=== PATIENT | female | born 1940 | race Caucasian/White ===

== ENCOUNTER 2016-08-02 07:14 | Emergency (ER) | payer MEDICARE, BC ==
[~2016-08-02] VITALS: Ht 160 cm; Wt 67.1 kg
[2016-08-02] MEDS ORDERED: DIPHENHYDRAMINE 50 MG/ML VIAL. IVP ONE (09:00)
[2016-08-02] MEDS ORDERED: methylPREDNISolone SOD SUCC PF 125 MG/2 ML VIAL. IV ONE (09:00)
[2016-08-02] MEDS ORDERED: FAMOTIDINE 20 MG/2 ML VIAL IVP ONE (09:00)
--- NOTE | 2016-08-02 09:32 | PHYS DOC ---
Past Medical History Past Medical History: Hypertension Drug Use: None Adult General Chief Complaint Chief Complaint: OTHER COMPLAINTS HPI HPI Patient is a 75 year old female who presents with upper and lower lip swelling for 2 days. She also has a rash on her neck and lower legs. She denies any shortness of breath or swelling of the tongue or throat. She has been taking Benadryl at home without relief. She last took Benadryl last night. Patient has a history of frequent allergic reactions. She states that prednisone usually helps. She denies any new foods or medications. She has not changed any household products. She does not take any Justo inhibitors. She has numerous food allergies, however states that she is very careful about what she eats. Her PCP is Dr. Hernandez. Review of Systems Review of Systems Constitutional: Denies fever or chills. [] Eyes: Denies change in visual acuity, redness, or eye pain. [] HENT: Denies ear pain, nasal congestion or sore throat. Denies throat or tongue swelling. Reports lip swelling. Respiratory: Denies cough or shortness of breath. [] Musculoskeletal: Denies back pain or joint pain. [] Integument: Denies skin lesions. Reports pruritic rash on the neck and lower legs. Neurologic: Denies headache, focal weakness or sensory changes. [] All systems reviewed and negative unless otherwise stated in the HPI. Current Medications Current Medications Current Medications Medications (Trade) Dose Ordered Sig/Jessica Start Time Stop Time Status Last Admin Dose Admin Diphenhydramine HCl (Benadryl) 25 mg 1X ONCE 08/02/16 09:00 08/02/16 09:01 DC 08/02/16 09:28 25 MG Famotidine (Pepcid) 20 mg 1X ONCE 08/02/16 09:00 08/02/16 09:01 DC 08/02/16 09:24 20 MG Methylprednisolone Sodium Succinate (Solu-Medrol 125mg Vial) 125 mg 1X ONCE 08/02/16 09:00 08/02/16 09:01 DC 08/02/16 09:30 125 MG Allergies Allergies Allergies Coded Allergies Type Severity Reaction Last Updated Verified Ahowegl-Wjv-Jdk Reductase Inhibitor Allergy Intermediate increase liver enzymes, muscle pain 08/02/16 Yes Physical Exam Physical Exam Constitutional: Well developed, well nourished, no acute distress, non-toxic appearance. [] HENT: Normocephalic, atraumatic, bilateral external ears normal, oropharynx moist, no oral exudates, nose normal. There is no swelling of the tongue or the posterior pharynx. There is mild swelling of the upper and lower lips bilaterally. Eyes: PERRLA, EOMI, conjunctiva normal, no discharge. [] Neck: Normal range of motion, no tenderness, supple, no stridor. [] Cardiovascular: Heart rate regular rhythm, no murmur [] Lungs & Thorax: Bilateral breath sounds clear to auscultation without wheezes, rales, or rhonchi. No respiratory distress. Skin: Warm, dry, no erythema. There is a patchy macular erythematous rash along the anterior neck and on bilateral lower extremities. Back: No tenderness, no CVA tenderness. [] Extremities: No tenderness, no cyanosis, no clubbing, ROM intact, no edema. [] Neurologic: Alert and oriented X 3, normal motor function, normal sensory function, no focal deficits noted. [] Psychologic: Affect normal, judgement normal, mood normal. [] Current Patient Data Vital Signs Vital Signs Date Time Temp Pulse Resp B/P Pulse Ox O2 Delivery O2 Flow Rate FiO2 08/02/16 08:00 98.3 76 19 97 Room Air 98.3 EKG EKG [] Radiology/Procedures Radiology/Procedures [] Course & Med Decision Making Course & Med Decision Making Pertinent Labs and Imaging studies reviewed. (See chart for details) Patient presents with lip swelling for 2 days due to unknown allergens. She has a history of similar. She is given a digital, Pepcid, and Solu-Medrol in the emergency department. She reported improvement in her symptoms with objective improvement in her neck rash. She is discharged home with prescription for prednisone. She is encouraged to follow-up with an formulation scientist. Return precautions were discussed. She verbalizes understanding and agrees with plan. Dragon Disclaimer Dragon Disclaimer This electronic medical record was generated, in whole or in part, using a voice recognition dictation system. Departure Departure Impression: Primary Impression: [id number] Disposition: HOME, SELF-CARE Condition: IMPROVED Referrals: KALYAN HERNANDEZ MD (PCP) Patient Instructions: Angioedema, Vkrj-lg-Ydra Additional Instructions: You were seen for swelling of the lips, called angioedema. This is usually the result of an allergic reaction. Please complete all of the prescribed steroids. You may take Benadryl and Pepcid at home to help with your symptoms as well. Use according to package instructions. Please follow-up with your primary care doctor or an formulation scientist. Return to the emergency department if you have increased swelling of your lips, swelling of the tongue or throat, difficulty breathing, or other new or concerning symptoms. Scripts Prednisone 20 Mg [id number] Mg PO DAILY 5 Days Prov:TOMER BOYLE 08/02/16 Problem Qualifiers Primary Impression: [id number] Encounter type: initial encounter Qualified Code: T78.3XXA - Angioneurotic edema, initial encounter TOMER BOYLE Aug 02, 2016 09:32
[2016-08-02] MEDS ORDERED: PRED20TA PO (10:28)
[2016-08-02 10:30] VITALS: BP 160/72
== END 2016-08-02 10:56 | disposition home or self-care (01) ==
LOC: ER 07:14
DX: T78.3XXA Angioneurotic edema, initial encounter (principal); I10 Essential (primary) hypertension; Z88.8 Allergy status to other drugs, medicaments and biological substances; Y84.8 Other medical procedures as the cause of abnormal reaction of the patient, or of later complication, without mention of misadventure at the time of the procedure; Y92.89 Other specified places as the place of occurrence of the external cause
CPT/HCPCS: 96374; 96375; 99284; J1200; J2930; S0028

== ENCOUNTER → 2017-01-10 | Outpatient (CLI) | payer MEDICARE, BC ==
[~2017-01-10] MED LIST: PRED20TA PO
== END | disposition home or self-care (01) ==
LOC: EKG 15:21
PROVIDERS: ATTEND Internal Medicine Cardiovascular Disease
DX: R00.2 Palpitations (principal)
CPT/HCPCS: 93225

== ENCOUNTER → 2017-01-17 | Outpatient (CLI) | payer MEDICARE, BC ==
[~2017-01-17] MED LIST changes: +ASPI-482 PO; +COLE1TAB2 PO; +LOSA1TAB18 PO; +MAGN400C PO; +POTASSIUM CHLO10 MEQ PO; +REGADENOSON 0.4 MG/5 ML DISP.SYRIN. IV ONE
--- NOTE | 2017-01-17 14:18 | RAD ---
APPROVED REPORT Test Type: Pharmacological Stress Nurse/Tech: zoë richards Test Indications: tachycardia, arrythmia Cardiac History: tachycardia, arrythmia, HTN, see EHR Medications: none stated Medical History: remote smoker, see EHR Resting ECG: SR Resting Heart Rate: 79 bpm Resting Blood Pressure: 138/53mmHg Pretest Chest Pain: No chest pain Nurse/Tech Notes LUNG SOUNDS CLEAR, S1S2 WNL. Consent: The procedure was explained to the patient in lay terms. Informed consent was witnessed. Juan Antonio eout was entered into [employer]. History and Stress Test performed by RT Goran (Harry) (N) Pharm. Details Pharmacologic stress testing was performed using 0.4mg per 5ml of regadenoson given intravenously ove r 7-10 seconds. Stress Symptoms NONE STATED. POST EXERCISE Reason for Termination: Infusion complete Max HR: 94 bpm Max Blood Pressure: 138/53mmHg Chest Pain: No. Arrhythmia: No. ST Change: No. INTERPRETATION Stress EKG Conclusion: The resting EKG shows a sinus rhythm, nonspecific ST segment changes and a pos sible previous anterior septal infarct. The stress EKG shows no significant changes from baseline. No EKG evidence of stress-induced ischemia. Imaging Protocol IMAGE PROTOCOL: Rest Tc-99m/stress Tc-99m 1 day Rest: Stress: Viability: Radiopharm.Tc99m [id number] Sestamibi Dose11.1mCi 32mCi Img Date 01/17/2017 01/17/2017 Inj-Img [id number]. 60min. Rest Admin Site:IV - Left WristAdministrator:ASHWINI Hill Stress Admin Site: IV - Left WristAdministrator: RT Goran (R)(N) STRESS DATA End Diast. Vol.47.0mlAv. Heart Rate77.0bpm End Syst. Vol.6.0mlCO Index BSA0.0L/min Myocardial Mass90.0gEject. Ncifgkoj52.0% Stress Rates Pk. Fill Rate4.93EDV/secLVtime Pk. Fill 217.35msec Pk. Empty Rate5.71ESV/secLVtime Pk. Tduoh190.84msec 1/3 Pk. Fill1.59EDV/sec Stress Scores Regional WT1.00Summed WT7.00 Regional WM0.00Summed WM0.00 LV Perfusion The stress scans showed no significant defects. The rest scans showed no significant defects. Nuclear imaging shows no reversible ischemia or infarct. Wall Motion Left ventricular systolic function is normal with ejection fraction of greater than 70%. LV Perf. Quant 17 Seg. SSS0.00 17 Seg. SRS0.00 17 Seg. SDS0.00 Stress Defect Extent (% LAD)0.00Rest Defect Extent (% LAD)0.00Rev. Defect Extent (% LAD)0.00 Stress Defect Extent (% LCX) 0.00Rest Defect Extent (% LCX)0.00Rev. Defect Extent (% LCX)0.00 Stress Defect Extent (% RCA)0.00Rest Defect Extent (% RCA)0.00Rev. Defect Extent (% RCA)0.00 Stress Defect Extent (% DIVYA)0.00Rest Defect Extent (% DIVYA)0.00Rev. Defect Extent (% DIVYA)0.00 Conclusion 1. Baseline abnormal EKG but no EKG evidence of stress-induced ischemia. 2. Nuclear imaging shows no reversible ischemia or infarct. 3. Normal left ventricular systolic function with an ejection fraction of greater than 70%. 4. Low risk Lexiscan nuclear stress test.
--- NOTE | 2017-01-18 18:24 | RAD ---
APPROVED REPORT Patient Location: OUT-PATIENT Laterality:Bilateral Indications STENOSIS/PREVIOUS RT ENDARTERECTOMY Doppler Spectral Velocity Analysis Right Left pCCA 126/25 cm/spCCA 109/26 cm/s mCCA 117/23 cm/smCCA 129/33 cm/s dCCA 108/31 cm/sdCCA 105/32 cm/s Bulb 83/13 cm/sBulb 100/28 cm/s ECA 113/ cm/sECA 168/ cm/s pICA 148/38 cm/spICA 95/31 cm/s Al 136/35 cm/smICA 136/42 cm/s dICA 144/36 cm/sdICA 111/36 cm/s Vert. 54/ cm/sVert. 43/ cm/s Subcl. 107/ cm/sSubcl. 254/ cm/s ICA/CCA 1.17ICA/CCA 1.25 Findings Chamberlain scale images of the bilateral common carotid, internal carotid and external carotid arteries rev eals intimal hyperplasia of mild degree. On the right there is suggestion of approximately 50-69% stenosis involving the proximal and mid inte rnal carotid artery. The vertebral velocities are antegrade. ICA to CCA ratios are grossly normal on the right side suggestive of possible high flow state accounting for the elevated velocities in the I CA as there is no clear evidence of plaque or stenosis by chamberlain scale images. The left common carotid, internal carotid and vertebral velocities are grossly within normal limits. Slight elevation of the mid internal carotid artery velocities as noted suggestive again of approxima tely 50-69% stenosis by ultrasound criteria but no clear evidence of at the chronic plaque is noted. ICA to CCA ratios are again within normal limits on the left side. There are elevated left external c arotid artery velocities of 168 cm/s suggestive greater than 50% stenosis. There is also elevated luz maria ocities noted in the left subclavian at 253 cm per second suggestive again of greater than 50% stenos is Critical Notification Critical Value: No <Conclusion> Moderate bilateral internal carotid artery stenosis of approximately 50-69% by ultrasound criteria Incidental finding of left subclavian stenosis with elevated velocities.
== END | disposition home or self-care (01) ==
LOC: NM 08:18
PROVIDERS: ATTEND Internal Medicine Cardiovascular Disease
DX: I65.23 Occlusion and stenosis of bilateral carotid arteries (principal); I10 Essential (primary) hypertension; Z79.01 Long term (current) use of anticoagulants
CPT/HCPCS: 78452; 93017; 93880; 96374; 96375; 96376; A9500; J2785

== ENCOUNTER 2017-07-12 08:15 | Emergency (ER) | payer MEDICARE, BC | END 2017-07-12 09:03 | disposition home or self-care (01) | LOC: ER 08:15 | DX: T78.40XA Allergy, unspecified, initial encounter (principal); I10 Essential (primary) hypertension; Z88.8 Allergy status to other drugs, medicaments and biological substances; X58.XXXA Exposure to other specified factors, initial encounter | CPT/HCPCS: 99283 ==

== ENCOUNTER → 2018-02-06 | Outpatient (CLI) | payer MEDICARE, BC ==
[2017-07-12 09:00] VITALS: BP 143/71
[~2018-02-06] MED LIST changes: +DIPH25CA58 PO; -LOSA1TAB18 PO; +LOSA1TAB25 PO; +POTA10TA12 PO; -POTASSIUM CHLO10 MEQ PO; +PRED50TA PO; -REGADENOSON 0.4 MG/5 ML DISP.SYRIN. IV ONE
--- NOTE | 2018-02-06 10:34 | RAD ---
MR#: [id number] Date of Study: 02/06/2018 Ordering Physician: LETY ADKINS, Referring Physician: LETY ADKINS Tech: Vi Cruz RDMS RVT APPROVED REPORT Patient Location: OUT-PATIENT Laterality:Bilateral Indications CAROTID STENOSIS Surgery/Intervention Endarterectomy: right Doppler Spectral Velocity Analysis Right Left mCCA 112/20 cm/smCCA 98/21 cm/s ECA 117/ cm/sECA 101/ cm/s pICA 103/26 cm/spICA 76/20 cm/s Al 104/25 cm/smICA 101/27 cm/s dICA 103/26 cm/sdICA 85/24 cm/s ICA/CCA 0.93ICA/CCA 0.00 Findings Grayscale images of the bilateral common carotid, external and internal carotid vessels reveal mild d iffuse atherosclerotic plaque. Spectral waveforms and color Doppler are suggestive overall 0 to less than 50% stenosis. Bilateral vertebral velocities are antegrade and fashion. Bilateral ICA to CCA ratios are within normal limits. Critical Notification Critical Value: No <Conclusion> No significant carotid arterial disease bilaterally. Signed by : Daniel Croft, Electronically Approved : 02/06/2018 10:34:05
== END | disposition home or self-care (01) ==
LOC: US 07:16
PROVIDERS: ATTEND Internal Medicine Cardiovascular Disease
DX: I65.23 Occlusion and stenosis of bilateral carotid arteries (principal)
CPT/HCPCS: 93880

== ENCOUNTER 2018-05-08 08:07 | Emergency (ER) | payer MEDICARE, BC ==
[~2018-05-08] VITALS: Ht 160 cm; Wt 68.0 kg
[2018-05-08 08:15] VITALS: BP 164/69
--- NOTE | 2018-05-08 08:33 | PHYS DOC ---
Past Medical History Past Medical History: Hypertension Additional Past Medical Histor: PROLAPSED BLADDER Past Surgical History: Tubal ligation Additional Past Surgical Histo: CAROTID ENDARTERECTOMY Alcohol Use: None Drug Use: None Adult General Chief Complaint Chief Complaint: COUGH HPI HPI Patient is a 77 year old female who presents with a history of hypertension and seasonal allergies who presents today complaining of a productive cough and nasal congestion for 6 days. Patient denies any fever. Review of Systems Review of Systems Constitutional: Denies fever or chills [] Eyes: Denies change in visual acuity, redness, or eye pain [] HENT: Denies nasal congestion or sore throat [] Respiratory: Reports cough, denies shortness of breath [] Cardiovascular: No additional information not addressed in HPI [] GI: Denies abdominal pain, nausea, vomiting, bloody stools or diarrhea [] : Denies dysuria or hematuria [] Musculoskeletal: Denies back pain or joint pain [] Integument: Denies rash or skin lesions [] Neurologic: Denies headache, focal weakness or sensory changes [] All other systems were reviewed and found to be within normal limits, except as documented in this note. Allergies Allergies Allergies Coded Allergies Type Severity Reaction Last Updated Verified Axagvht-Zfl-Uon Reductase Inhibitor Allergy Intermediate increase liver enzymes, muscle pain 05/08/18 Yes Physical Exam Physical Exam Constitutional: Well developed, well nourished, no acute distress, non-toxic appearance. [] HENT: Normocephalic, atraumatic, bilateral external ears normal, oropharynx moist, no oral exudates, nose normal. [] Eyes: PERRLA, EOMI, conjunctiva normal, no discharge. [] Neck: Normal range of motion, no tenderness, supple, no stridor. [] Cardiovascular:Heart rate regular rhythm, no murmur [] Lungs & Thorax: Bilateral breath sounds clear to auscultation [] Abdomen: Bowel sounds normal, soft, no tenderness, no masses, no pulsatile masses. [] Skin: Warm, dry, no erythema, no rash. [] Back: No tenderness, no CVA tenderness. [] Extremities: No tenderness, no cyanosis, no clubbing, ROM intact, no edema. [] Neurologic: Alert and oriented X 3, normal motor function, normal sensory function, no focal deficits noted. [] Psychologic: Affect normal, judgement normal, mood normal. [] Current Patient Data Vital Signs Vital Signs Date Time Temp Pulse Resp B/P (MAP) Pulse Ox O2 Delivery O2 Flow Rate FiO2 05/08/18 08:15 98.6 79 20 164/69 (100) 97 Room Air 98.6 EKG EKG [] Radiology/Procedures Radiology/Procedures []PROCEDURE: CHEST PA & LATERAL AP and Lateral Views of the Chest 05/08/2018 8:17 AM Indication: PATIENT HAS HAD A PRODUCTIVE X1 WEEK. Comparison: None Findings: There is no focal consolidation or infiltrate identified. The cardiomediastinal silhouette is within normal limits. There is no evidence of pneumothorax or pleural effusion. No acute osseous abnormalities are identified. Impression: No evidence of acute cardiopulmonary process. Electronically signed by: Geovany Summers MD (05/08/2018 9:03 AM) [facility] DICTATED and SIGNED BY: GEOVANY SUMMERS MD DATE: 05/08/18 0903 Course & Med Decision Making Course & Med Decision Making Pertinent Labs and Imaging studies reviewed. (See chart for details) This is a 77-year-old female patient with history of allergies, presenting to the ED today complaining of a productive cough for 6 days. Chest x-ray interpreted by radiologist is negative for any acute findings. Patient could likely have bronchitis. Patient herself is very concerned and is asking for antibiotics. She does not meet criteria we discussed benefits and risk of taking antibiotics. Rx for z-pack, prednisone, and albuterol inhaler given, encouraged to continue taking Zyrtec at home. Dragon Disclaimer Dragon Disclaimer This electronic medical record was generated, in whole or in part, using a voice recognition dictation system. Departure Departure Impression: Primary Impression: Seasonal allergies Additional Impression: Acute bronchitis Disposition: HOME, SELF-CARE Condition: STABLE Referrals: BON PEÑA APRN (PCP) follow up with your doctor in 1-2 weeks Patient Instructions: Acute Bronchitis, Allergies, Generic Additional Instructions: You were seen for cough and allergies, continue taking prednisone and Zyrtec. Use the rest of the prescribed medications as ordered. Follow-up with your doctor in the coming 1-2 weeks. Come back to the ED at any point symptoms worsen. Scripts Azithromycin (ZITHROMAX) 250 Mg Tablet 1 PKG PO UD, #1 PKG Prov: TJ JARA APRN 05/08/18 Prednisone (PREDNISONE) 50 Mg Tablet 1 TAB PO DAILY, #5 TAB Prov: TJ JARA APRN 05/08/18 Albuterol Sulfate (VENTOLIN HFA INHALER) 18 Gm Hfa.aer.ad 2 PUFF INH Q4HRS for FOR ASTHMA, #1 INHALER 0 Refills Prov: TJ JARA APRN 05/08/18 Problem Qualifiers Additional Impression: Acute bronchitis Bronchitis organism: unspecified organism Qualified Codes: J20.9 - Acute bronchitis, unspecified TJ JARA APRN May 08, 2018 08:33
--- NOTE | 2018-05-08 09:08 | RAD ---
AP and Lateral Views of the Chest 05/08/2018 8:17 AM Indication: PATIENT HAS HAD A PRODUCTIVE X1 WEEK. Comparison: None Findings: There is no focal consolidation or infiltrate identified. The cardiomediastinal silhouette is within normal limits. There is no evidence of pneumothorax or pleural effusion. No acute osseous abnormalities are identified. Impression: No evidence of acute cardiopulmonary process. Electronically signed by: Geovany Morales MD (05/08/2018 9:03 AM) [facility]
[2018-05-08] MEDS ORDERED: AZIT250T PO (09:31)
[2018-05-08] MEDS ORDERED: VENTOLIN HFA18 GM INH (09:31)
[2018-05-08] MEDS ORDERED: PRED50TA PO (09:31)
== END 2018-05-08 09:45 | disposition home or self-care (01) ==
LOC: ER 08:07
DX: J20.9 Acute bronchitis, unspecified (principal); J30.2 Other seasonal allergic rhinitis; I10 Essential (primary) hypertension; Z98.51 Tubal ligation status; Z88.8 Allergy status to other drugs, medicaments and biological substances
CPT/HCPCS: 71046; 99283

== ENCOUNTER → 2019-02-19 | Outpatient (CLI) | payer MEDICARE, BC ==
[~2019-02-19] MED LIST changes: +AZIT250T PO; +VENTOLIN HFA18 GM INH
--- NOTE | 2019-02-19 10:31 | CARD ---
MR#: [id number] Date of Study: 02/19/2019 Ordering Physician: LETY STACY, Referring Physician: LETY STACY Tech: Vi Elder RDCS APPROVED REPORT EXAM: Two-dimensional and M-mode echocardiogram with Doppler and color Doppler. Other Information Quality : AverageHR: 79bpm Rhythm : NSR INDICATION Hypertension/HCVD 2D DIMENSIONS RVDd3.0 (2.9-3.5cm)Left Atrium(2D)3.5 (1.6-4.0cm) IVSd1.1 (0.7-1.1cm)Aortic Root(2D)2.5 (2.0-3.7cm) LVDd4.1 (3.9-5.9cm)LVOT Diameter1.8 (1.8-2.4cm) PWd0.8 (0.7-1.1cm)IVSs1.4 (0.8-1.2cm) LVDs2.6 (2.5-4.0cm)FS (%) 37.1 % PWs1.3 (0.8-1.2cm)SV51.0 ml LVEF(%)65.0 (>50%) M-Mode DIMENSIONS Left Atrium(MM)3.33 (2.5-4.0cm)Aortic Root2.80 (2.2-3.7cm) Aortic Valve AoV Peak Schuyler.154.9cm/sAoV VTI38.0cm AO Peak GR.9.6mmHgLVOT Peak Schuyler.92.9cm/s LVOT VTI 18.86cmAO Mean GR.6mmHg DMITRY (VMAX)1.73dp6ZEF (VTI)1.27cm2 Mitral Valve MV E Vbyuuwdh50.6cm/sMV DECEL YGTU120wz MV A Bmgxwdiz852.2cm/sMV TSV18te E/A Ratio0.9MVA (PHT)3.49cm2 TDI E/Lateral E'12.4E/Medial E'9.9 Pulmonary Valve PV Peak Slbqexpj54.1cm/sPV Peak Grad.3mmHg Tricuspid Valve TR P. Ruzucclu570oe/sRAP SECOYTJA0miCe TR Peak Gr.95xiAnKCNY41plQs LEFT VENTRICLE The left ventricle is normal size. Proximal septal thickening is noted. The left ventricular systolic function is normal. The Ejection Fraction is 55-60%. There is normal LV segmental wall motion. Trans mitral Doppler flow pattern is Grade I-abnormal relaxation pattern. RIGHT VENTRICLE The right ventricle is normal size. There is normal right ventricular wall thickness. The right ventr icular systolic function is normal. ATRIA The left atrium size is normal. The right atrium size is normal. The interatrial septum is intact wit h no evidence for an atrial septal defect or patent foramen ovale as noted on 2-D or Doppler imaging. AORTIC VALVE The aortic valve is mildly calcified. The aortic valve is trileaflet. Doppler and Color Flow revealed no significant aortic regurgitation. There is no significant aortic valvular stenosis. There is no a ortic valvular vegetation. MITRAL VALVE Mitral annular calcification is mild. There is no evidence of mitral valve prolapse. There is no mitr al valve stenosis. Doppler and Color-flow revealed trace to mild mitral regurgitation. TRICUSPID VALVE The tricuspid valve is normal in structure and function. Doppler and Color Flow revealed mild tricusp id regurgitation. The PA pressure was estimated at 50 mmHg. There is no tricuspid valve prolapse or v egetation. There is no tricuspid valve stenosis. PULMONIC VALVE The pulmonic valve is not well visualized. GREAT VESSELS The aortic root is normal in size. The ascending aorta is normal in size. The IVC is normal in size a nd collapses >50% with inspiration. PERICARDIAL EFFUSION There is no evidence of significant pericardial effusion. Critical Notification Critical Value: No <Conclusion> The left ventricular systolic function is normal. The Ejection Fraction is 55-60%. There is normal LV segmental wall motion. Transmitral Doppler flow pattern is Grade I-abnormal relaxation pattern. Trace to mild mitral regurgitation. Mild tricuspid regurgitation. The PA pressure was estimated at 50 mmHg. There is no evidence of significant pericardial effusion. Signed by : Lety Stacy, Electronically Approved : 02/19/2019 10:31:47
--- NOTE | 2019-02-19 11:11 | RAD ---
MR#: [id number] Date of Study: 02/19/2019 Ordering Physician: LETY ADKINS, Referring Physician: LETY ADKINS, Tech: Adilene Cintron RVT, MARISOL APPROVED REPORT Patient Location: OUT-PATIENT Laterality:Bilateral Risk Factors Hypertension: Smoking Surgery/Intervention Endarterectomy: right Doppler Spectral Velocity Analysis Right Left pCCA 122/21 cm/spCCA 114/23 cm/s mCCA 113/23 cm/smCCA 95/17 cm/s dCCA 104/22 cm/sdCCA 116/26 cm/s ECA 124/15 cm/sECA 148/15 cm/s pICA 116/24 cm/spICA 113/23 cm/s Al 85/23 cm/smICA 88/24 cm/s dICA 94/32 cm/sdICA 97/32 cm/s Vert. 45/18 cm/sVert. 42/11 cm/s ICA/CCA 0.95ICA/CCA 0.99 Findings Grayscale images of the bilateral common carotid, external and internal carotid vessels demonstrate m ild intimal hyperplasia. No obvious stenosis is noted on carballo scale images. Spectral waveforms and color Doppler of the internal carotid artery are within normal limits. Overall 0 to less than 50% stenosis based on velocity criteria. Bilateral vertebral velocities are antegrade . Normal ICA to CCA ratios bilaterally. Critical Notification Critical Value: No <Conclusion> No significant carotid occlusive disease bilaterally. Signed by : Daniel Croft, Electronically Approved : 02/19/2019 11:11:14
== END | disposition home or self-care (01) ==
LOC: ECHO 08:47
PROVIDERS: ATTEND Internal Medicine Cardiovascular Disease
DX: I08.8 Other rheumatic multiple valve diseases (principal); I11.9 Hypertensive heart disease without heart failure; F17.200 Nicotine dependence, unspecified, uncomplicated
CPT/HCPCS: 93306; 93880

== ENCOUNTER → 2019-11-17 | Outpatient (CLI) | payer MEDICARE, BC ==
--- NOTE | 2019-11-17 13:34 | RAD ---
EXAM: CHEST PA LATERAL INDICATION: Reason: PANUVEITIS. R/O SARCOIDOSIS. / Spl. Instructions: / History: . TECHNIQUE: Single view COMPARISON: 05/08/2018 FINDINGS: The heart size is normal. The great vessels appear unremarkable. There is no hilar or mediastinal mass. The lungs are clear. There is no pleural effusion or pneumothorax. There are no significant osseous abnormalities. IMPRESSION: No active cardiopulmonary disease. No adenopathy in the pattern typical of pulmonary sarcoidosis. CT could be considered in further evaluation if there is a high index of suspicion. Electronically signed by: Shaniqua Hernandez MD (11/17/2019 1:31 PM) [id number]
== END | disposition home or self-care (01) ==
LOC: RAD 10:02
PROVIDERS: ATTEND Nurse Practitioner Gerontology
DX: H44.113 Panuveitis, bilateral (principal)
CPT/HCPCS: 71046